=== PATIENT | female | born 1950 | race Caucasian/White ===

== ENCOUNTER → 2016-09-22 | Outpatient (CLI) | payer BC | LOC: FIMAGING 08:04 | DX: Z13.820 Encounter for screening for osteoporosis (principal); Z82.49 Family history of ischemic heart disease and other diseases of the circulatory system ==

== ENCOUNTER → 2017-06-27 | Outpatient (CLI) | payer OTHER | LOC: FIMAGING 13:03 | DX: Z12.31 Encounter for screening mammogram for malignant neoplasm of breast (principal) ==